=== PATIENT | male | born 1975 | race Caucasian/White ===

== ENCOUNTER 2021-01-20 19:38 | Outpatient (CLI) | payer MEDICARE, MEDICAID | END 2021-01-20 19:39 | disposition critical access hospital (66) | LOC: EMS 19:38 | DX: K08.89 Other specified disorders of teeth and supporting structures (principal) | CPT/HCPCS: A0425; A0429; A0999 ==

== ENCOUNTER 2021-01-20 20:09 | Emergency (ER) | payer MEDICARE, MEDICAID ==
[2021-01-20 20:17] VITALS: BP 147/85
[2021-01-20] MEDS ORDERED: KETOROLAC 30 MG/ML VIAL IM STA (20:42)
--- NOTE | 2021-01-20 20:44 | ED Physician Documentation ---
History of Present Illness - Stated complaint Stated Complaint: TOOTHACHE, FEELS LIKE HE HAS WALKING PNA - Chief complaint Chief Complaint: Heent - History obtained from History obtained from: Patient - Additonal information Additional information: 45yM with poor dentition, undomiciled, Presents with loose right upper front tooth. also [facility] there. (He reports he was banned for 2 weeks due to smoking a marijuana vape pen outside.) Review of Systems Throat: reports: Dental pain / toothache PD PAST MEDICAL HISTORY - Present Medications Home Medications: Ambulatory Orders Medication Instructions Recorded Confirmed No Known Home Medications 01/20/21 01/20/21 - Allergies Allergies/Adverse Reactions: Allergies Allergy/AdvReac Type Severity Reaction Status Date / Time No Known Drug Allergies Allergy Verified 01/20/21 20:13 PD ED PE NORMAL - Vitals Vital signs reviewed: Yes - General General: Alert and oriented X 3, No acute distress, Well developed/nourished - HEENT HEENT: Atraumatic, PERRL, EOMI, Other (Poor dentition. Tolerating secretions normally. No Jaciel's. No trismus.) Results - Vitals Vitals: Vital Signs - 24 hr 01/20/21 20:15 Temperature 37.1 C Heart Rate 89 Respiratory 18 Rate Blood Pressure 147/85 H O2 Saturation 94 Oxygen O2 Source Room air PD MEDICAL DECISION MAKING - ED course ED course: 45-year-old man presents with dental pain. No infection evident. Advised him to follow-up with dental. Note provided to request that they have not let him sleep there. Return precautions given. Departure - Departure Disposition: 01 Home, Self Care Clinical Impression: Pain due to dental caries Condition: Good Instructions: Decay Tooth Follow-Up: Yariel Miller DDS [Provider Admit Priv/Credential] - Comments: You were seen in the emergency department for dental pain. Please return to the emergency department if you have trouble breathing, difficulty opening/closing the jaw, or any other concerns. Follow up with a dentist or with Dr. Yariel Miller (information enclosed). Forms: Activity restrictions Discharge Date/Time: 01/20/21 21:36
== END 2021-01-20 21:36 | disposition home or self-care (01) ==
LOC: ED 20:09
DX: K02.9 Dental caries, unspecified (principal); K08.89 Other specified disorders of teeth and supporting structures; Z59.00 Homelessness unspecified
CPT/HCPCS: 96372; 99282; 99283